=== PATIENT | female | born 1960 | race Caucasian/White ===

== ENCOUNTER → 2016-10-30 | Outpatient (CLI) | payer OTHER | LOC: BMCIMAGING 13:17 | PROVIDERS: ATTEND Internal Medicine Pulmonary Disease | DX: R06.00 Dyspnea, unspecified (principal) ==

== ENCOUNTER → 2016-11-09 | Outpatient (CLI) | payer OTHER | LOC: FIMAGING 08:49 | PROVIDERS: ATTEND Obstetrics & Gynecology Gynecology | DX: Z12.31 Encounter for screening mammogram for malignant neoplasm of breast (principal); Z85.3 Personal history of malignant neoplasm of breast | CPT/HCPCS: G0202 ==

== ENCOUNTER → 2017-04-24 | Outpatient (CLI) | payer OTHER ==
[~2017-04-24] MED LIST: GADOBUTROL 10 ML VIAL IVP ONE
== END ==
LOC: FIMAGING 12:04
PROVIDERS: ATTEND Internal Medicine Hematology & Oncology
DX: Z12.31 Encounter for screening mammogram for malignant neoplasm of breast (principal); Z85.3 Personal history of malignant neoplasm of breast
CPT/HCPCS: 0159T; A9585; C8908

== ENCOUNTER → 2017-08-22 | Outpatient (CLI) | payer OTHER ==
[~2017-08-22] MED LIST changes: -GADOBUTROL 10 ML VIAL IVP ONE; +IOPAMIDOL (ISOVUE-300) 100 ML BTL ONE
== END ==
LOC: FIMAGING 09:22
PROVIDERS: ATTEND Family Medicine
DX: R16.0 Hepatomegaly, not elsewhere classified (principal); K63.89 Other specified diseases of intestine; Z85.3 Personal history of malignant neoplasm of breast
CPT/HCPCS: Q9967

== ENCOUNTER → 2017-09-05 | Outpatient (CLI) | payer OTHER | LOC: EDSTATUS 10:35 → FIMAGING 10:35 | PROVIDERS: ATTEND Surgery | DX: C50.412 Malignant neoplasm of upper-outer quadrant of left female breast (principal); Z95.828 Presence of other vascular implants and grafts ==

== ENCOUNTER → 2018-01-17 | Outpatient (CLI) | payer OTHER ==
[~2018-01-17] MED LIST changes: +GADOBUTROL 10 ML VIAL IVP ONE; -IOPAMIDOL (ISOVUE-300) 100 ML BTL ONE
== END ==
LOC: FIMAGING 13:21
PROVIDERS: ATTEND Internal Medicine Hematology & Oncology
DX: R90.82 White matter disease, unspecified (principal); C18.2 Malignant neoplasm of ascending colon; I10 Essential (primary) hypertension; Z85.3 Personal history of malignant neoplasm of breast
CPT/HCPCS: A9585

== ENCOUNTER 2018-01-22 13:31 | Emergency (ER) | payer OTHER ==
[2018-01-22] MEDS ORDERED: traMADol 50 MG TAB PO ONE (15:57)
--- NOTE | 2018-01-22 15:58 | EDPHY ---
H & P Stated Complaint: sent by [facility] for HTN Time Seen by Provider: 01/22/18 15:33 HPI/ROS: CHIEF COMPLAINT: Elevated blood pressure after starting chemotherapy HISTORY OF PRESENT ILLNESS: The patient presents the ED from [facility] with elevated blood pressure after having started chemotherapy. She developed hypertension from presumed Avastin use. The patient was initially started on lisinopril 10 mg a day. Yesterday she started taking 20 mg in the morning and 10 mg at night. She has only taken 20 mg today. [facility] noted to have a blood pressure in the 170/100 range and was referred to the E [facility]. The patient has had a dull frontal headache which has been intermittent. She denies any focal numbness or weakness. She denies any history of fall or trauma. The patient denies prior history of hypertension. She did undergo a reported unremarkable echocardiogram earlier this week. REVIEW OF SYSTEMS: A comprehensive 10 point review of systems is otherwise negative aside from elements mentioned in the history of present illness. Source: Patient - Medical/Surgical History Hx Asthma: No Hx Chronic Respiratory Disease: No Hx Diabetes: No Hx Cardiac Disease: No Hx Renal Disease: No Hx Cirrhosis: No Hx Alcoholism: No Hx HIV/AIDS: No Hx Splenectomy or Spleen Trauma: No Other PMH: colon CA with liver mets--IV chemo and immunotherapy - Social History Smoking Status: Former smoker - Physical Exam Exam: General Appearance: Alert, no distress Eyes: Pupils equal and round no pallor or injection ENT, Mouth: Mucous membranes moist Respiratory: There are no retractions, lungs are clear to auscultation, port to chest wall Cardiovascular: Regular rate and rhythm Gastrointestinal: Abdomen is soft and nontender, no masses, bowel sounds normal Neurological: 5/5 strength all 4 extremities Skin: Warm and dry, no rashes Musculoskeletal: Neck is supple nontender Extremities: symmetrical, full range of motion Constitutional: Initial Vital Signs Temperature (C) 36.6 C 01/22/18 13:44 Heart Rate 93 01/22/18 13:44 Respiratory Rate 16 01/22/18 13:44 Blood Pressure 176/115 H 01/22/18 13:44 O2 Sat (%) 95 01/22/18 13:44 O2 Delivery Mode Room Air Allergies/Adverse Reactions: CT Contrast Allergy (Uncoded 08/26/17 17:49) Hives Home Medications: Medication Instructions Recorded Lisinopril 01/22/18 amLODIPine BESYLATE [Amlodipine 5 mg PO DAILY #30 tablet 01/22/18 Besylate] Medical Decision Making ED Course/Re-evaluation: The patient presents to the ED with persistent hypertension in the setting of recently starting Avastin. The patient is noted to have a normal renal function in the emergency department. I did dasha Espino from Cardiology. He recommends the patient begin taking lisinopril 40 mg a day. She can take these tablets in the morning. We will also add amlodipine 5 mg. She will follow up with Cardiology later this week for a blood pressure recheck. - Data Points Laboratory Results: 01/22/18 16:08 POC Hgb 10.5 gm/dL L gm/dL (12.6-16.3) POC Hct 31 % L % (38-47) POC Sodium 142 mEq/L mEq/L (135-145) POC Potassium 3.7 mEq/L mEq/L (3.3-5.0) POC Chloride 110 mEq/L mEq/L (97-110) POC BUN 8 mg/dL mg/dL (7-23) POC Creatinine 0.6 mg/dL mg/dL (0.6-1.0) POC Glucose 93 mg/dL mg/dL (70-100) Point of Care Test Results: Chemistry 01/22/18 16:08 POC Sodium 142 mEq/L mEq/L (135-145) POC Potassium 3.7 mEq/L mEq/L (3.3-5.0) POC Chloride 110 mEq/L mEq/L (97-110) POC BUN 8 mg/dL mg/dL (7-23) POC Creatinine 0.6 mg/dL mg/dL (0.6-1.0) POC Glucose 93 mg/dL mg/dL (70-100) ISTAT H&H 01/22/18 16:08 POC Hgb 10.5 gm/dL L gm/dL (12.6-16.3) POC Hct 31 % L % (38-47) Departure - Departure Disposition: Home, Routine, Self-Care Clinical Impression: Hypertension Condition: Good Instructions: Hypertension (ED) Additional Instructions: 1. Take 40 mg of lisinopril in the morning, no additional lisinopril at night. 2. Amlodipine 5 mg daily. 3. Contact Cardiology to schedule a blood pressure check in the office later this week. 4. Return to the ED for markedly elevated blood pressure, severe headache, numbness, weakness or other concerns. Referrals: Camelia Dodd MD [Primary Care Provider] - As per Instructions
[2018-01-22 16:27] VITALS: BP 182/119
--- NOTE | 2018-01-22 16:41 | CPEKG ---
Test Reason : OPEN Blood Pressure : / mmHG Vent. Rate : 087 BPM Atrial Rate : 087 BPM P-R Int : 164 ms QRS Dur : 103 ms QT Int : 413 ms P-R-T Axes : 064 013 074 degrees QTc Int : 497 ms Sinus rhythm Confirmed by Aquiles Flores ([id number]) on 01/22/2018 4:40:43 PM Referred By: Confirmed By:Aquiles Flores
== END 2018-01-22 16:48 | disposition home or self-care (01) ==
DX: I10 Essential (primary) hypertension (principal); Z87.891 Personal history of nicotine dependence
CPT/HCPCS: 82435-PO; 82565-PO; 82947-PO; 84132-PO; 84295-PO; 84520-PO; 85014-PO

== ENCOUNTER → 2018-06-12 | Outpatient (CLI) | payer OTHER | LOC: FIMAGING 12:42 | PROVIDERS: ATTEND Internal Medicine Hematology & Oncology | DX: C78.7 Secondary malignant neoplasm of liver and intrahepatic bile duct (principal) ==

== ENCOUNTER → 2018-06-20 | Outpatient (CLI) | payer OTHER | LOC: FIMAGING 08:33 | PROVIDERS: ATTEND Internal Medicine Hematology & Oncology | DX: R90.82 White matter disease, unspecified (principal); R79.0 Abnormal level of blood mineral; C18.2 Malignant neoplasm of ascending colon | CPT/HCPCS: A9585 ==

== ENCOUNTER → 2018-07-30 | Outpatient (CLI) | payer OTHER | LOC: FIMAGING 12:34 | PROVIDERS: ATTEND Nurse Practitioner | DX: I87.8 Other specified disorders of veins (principal) ==